=== PATIENT | female | born 1960 ===

== ENCOUNTER 2021-06-28 11:35 | Emergency (ER) | payer OTHER, SELFPAY ==
[2021-06-28 12:50] VITALS: BP 111/58; PULSE 55; RESP 16; TEMP 35.8; O2SAT 95; BMI 24.9
--- NOTE | 2021-06-28 13:52 | ED_ITS ---
HPI - General Adult General Chief complaint: General Medical Stated complaint: Hemorrhoids Time Seen by Provider: 06/28/21 13:52 Source: patient Mode of arrival: ambulatory Limitations: no limitations History of Present Illness HPI narrative: 61 y/o female presenting to the ER c/o hemorrhoid pain for the last 5-6 days. She denies any rectal bleeding, no rectal trauma or intercourse. She has a history of hemorrhoids requiring hemorrhoidectomy x2 at [facility]. She reports constipation and has not had a BM in 2 days and it was hard. She denies N/V or abdominal pain. She has not been using any topical treatments for her hemorrhoids. MD complaint: hemorrhoids Onset (ago): day(s) (6) Location: buttocks Radiation: non-radiation Severity: moderate Severity scale (1-10): 7 Quality: aching and sharp Pain Consistency: constant Relieving factors: none Exacerbating factors: movement Associated symptoms: denies other symptoms Treatments prior to arrival: none Related Data Previous Rx's Medication Instructions Recorded docusate sodium 100 mg capsule 100 mg PO BID #30 cap 06/28/21 (Colace) doxycycline monohydrate 100 mg 100 mg PO BID #20 cap 06/28/21 capsule hydrocortisone 1 %-pramoxine 1 % 1 appl [place] QID PRN #10 g 06/28/21 rectal foam (Proctofoam HC) sennosides 8.6 mg capsule (senna) 8.6 mg PO DAILY #14 cap 06/28/21 Allergies Allergy/AdvReac Type Severity Reaction Status Date / Time Unable to Assess Allergy Unverified 06/28/21 14:09 Review of Systems Review of Systems: Constitutional: No Fever, No Chills ENT/Mouth: No sore throat, No Rhinorrhea, No Swallowing Difficulty Cardiovascular: No Chest Pain, No SOB Gastrointestinal: No Nausea, No Vomiting, No Diarrhea, No abdominal Pain, No Hematochezia, No Melena, +Constipation Genitourinary: No Dysuria, No Urinary Frequency, No Hematuria Musculoskeletal: No joint pain, No Myalgias Skin: +Skin Lesions, No rash Neuro: No Weakness, No Numbness, No Dizziness, No Headache Psych: +Anxiety/Panic Heme/Lymph: No Bruising, No Lymphadenopathy PMFSH Social History Social History Advance Directives: No Advance Directives Information Provided: Yes Physical Exam ED Vital Signs: Vital Signs - 24 hr 04/13/22 12:50 Temperature 96.5 F L Pulse Rate 55 Respiratory Rate 16 Blood Pressure 111/58 L Pulse Oximetry 95 BMI result Body Mass Index 24.9 Appearance: Alert. Oriented X3. No acute distress. HEENT: normal inspection CVS: Normal heart rate and rhythm. Pulses normal. Respiratory: No respiratory distress. Skin: Skin warm and dry. Normal skin color. Normal skin turgor. No rashes. Rectal: external hemorrhoids x2, one enlarged and tender with erythema but no visible thombosis, adjacent is a small pustule with surrounding erythema, no internal hemhorroids on VIPUL, no rectal wall involvement or palpable abscess. Extremities: normal inspection, normal ROM x4 Neuro: Oriented X 3. No motor deficit. No sensory deficit. Course Course Course Narrative: 61 y/o female with history of hemorrhoids s/p hemorrhoidectomy x2 presents with hemorrhoid pain x1 week. Not using any topical treatments. +constipation. No bleeding. Exam is revealing for an external hemorrhoid, tender with small pustule w/ small area of erythema adjacent. no rectal involvement, no hx DM. No evidence of perirectal abscess. Will treat hemorrhoids with proctofoam and give empiric doxycycline (PCN allergy) for possible cellulitis. Patient will follow up with general surgery for further evaluation or come back to the ER if symptoms worsen. Critical Care Time Critical Care Time Critical Care Time: No Discharge Plan Discharge Clinical Impression: External hemorrhoid Patient Disposition: Home, Self-Care Instructions: Hemorrhoids (DC) Additional Instructions: Use the prescribed medication on the hemorrhoid to help shrink it and treat the pain. It is important to treat constipation and prevent it from getting worse - take the prescribed bowel medications. Increase your fiber and water intake Take a warm bath each day and soak the area Follow up with General surgery for further evaluation If you develop new or worsening symptoms call 911 or come back to the ER for further evaluation. Prescriptions: New Proctofoam HC 1-1 % foam 1 appl OH QID PRN (Reason: hemorrhoids) Qty: 10 0RF doxycycline monohydrate 100 mg capsule 100 mg PO BID Qty: 20 0RF docusate sodium [Colace] 100 mg capsule 100 mg PO BID Qty: 30 0RF senna 8.6 mg capsule 8.6 mg PO DAILY Qty: 14 0RF Referrals: Nilesh Dunham MD [Physician] - 1 week (hemorrhoids)
== END 2021-06-28 14:31 | disposition home or self-care (01) ==
PROVIDERS: Emergency Provider Emergency Medicine
DX: K64.4 Residual hemorrhoidal skin tags (principal); Z79.899 Other long term (current) drug therapy
CPT/HCPCS: 99283

== ENCOUNTER 2023-07-07 10:52 | Emergency (ER) | payer OTHER, SELFPAY ==
--- NOTE | ~2023-07-07 | XR_ITS ---
EXAMINATION: XR RIBS, RIGHT CLINICAL INFORMATION: Fall pain COMPARISON: No prior exam available. TECHNIQUE: Chest frontal, 4 oblique rib series. Total of 5 views. FINDINGS: RIBS: Skeletal structures are normal. LUNGS AND BRYANT: Both lungs are clear. PLEURA: Normal. Costophrenic angles are sharp, no pneumothorax. HEART: The heart is normal in size. MEDIASTINUM: The mediastinum is within normal limits.. XR/XR ribs RT min 3V w CXR1V IMPRESSION: 1. No radiographic evidence of rib fracture. 2. No radiographic evidence of acute cardiopulmonary disease.
[2023-07-07 10:54] VITALS: BP 145/70; PULSE 56; RESP 17; TEMP 36.6; O2SAT 99; BMI 24.3
--- NOTE | 2023-07-07 11:53 | ED_ITS ---
HPI - General Adult General Chief complaint: General Medical Stated complaint: Fall/R side pain Time Seen by Provider: 07/07/23 11:52 Source: patient, family, RN notes reviewed and old records reviewed Mode of arrival: ambulatory Limitations: no limitations History of Present Illness HPI narrative: 63 year old female with no significant pmhx here with right anterior rib pain s/p mechanical fall 3 days ago. Patient states that she was bending over while cleaning her bathtub when she lost her balance, causing her to fall and hit the right side of her chest on the side of the tub. denies head strike or LOC. not on anticoagulation. she reports pain along the base of her anterior ribs which has been constant since. she has been taking Tylenol at home without relief. last dose was yesterday. Denies chest pain, palpitations, cough, hemoptysis, shortness of breath, abd pain, nausea, vomiting, flank pain, bruising. Related Data Previous Rx's ?Medication ?Instructions ?Recorded docusate sodium 100 mg capsule 100 mg PO BID #30 caps 06/28/21 (Colace) doxycycline monohydrate 100 mg 100 mg PO BID #20 caps 06/28/21 capsule hydrocortisone 1 %-pramoxine 1 % 1 appl NC QID PRN hemorrhoids #10 06/28/21 rectal foam (Proctofoam HC) grams sennosides 8.6 mg capsule (senna) 8.6 mg PO DAILY #14 caps 06/28/21 cyclobenzaprine 5 mg tablet 5 mg PO BEDTIME PRN muscle spasm 07/07/23 #4 tabs lidocaine 5 % topical patch 1 patch topical DAILY #15 ea 07/07/23 (Lidoderm) oxycodone 5 mg tablet 5 mg PO Q8H PRN pain (scale score 07/07/23 7-10) #3 tabs Allergies Allergy/AdvReac Type Severity Reaction Status Date / Time atorvastatin [From Lipitor] Allergy Shortness Verified 07/07/23 10:58 of Breath Penicillins [PCN] Allergy Vomiting Verified 07/07/23 10:58 rosuvastatin [From Crestor] Allergy Shortness Verified 07/07/23 10:58 of Breath Review of Systems Review of Systems: Constitutional: No fever, chills, fatigue, night sweats, weight changes ENT/Mouth: No ear pain, hearing loss, nasal congestion, sinus pain, rhinorrhea, sore throat Eyes: No eye pain, swelling, redness, vision changes, discharge Cardio: No chest pain, palpitations, ALFRED, orthopnea, peripheral edema Pulm: No SOB, cough, sputum, wheezing, dyspnea, hemoptysis GI: No nausea, vomiting, hematemesis, abdominal pain, diarrhea, constipation, hematochezia, melena : No irregular bleeding, dysuria, frequency, urgency, hesitancy, hematuria, flank pain, urinary flow changes, urinary incontinence or retention MSK: No back pain, neck pain, joint pain, myalgias, +right rib pain Skin: No lesions, rashes Neuro: No weakness, numbness, paresthesias, LOC, dizziness, headache Psych: No anxiety/panic, depression, SI/HI, AH/VH All other systems reviewed and are negative. [facility] Past Medical History Attestation statement: The following information was validated with the patient. Source: old records reviewed and nursing notes reviewed Social History Social History Advance Directives: No Advance Directives Information Provided: No Physical Exam ED Vital Signs: Vital Signs - 24 hr 07/07/23 14:09 07/07/23 14:21 Temperature 98 F Pulse Rate 46 L 46 L Respiratory Rate 16 Blood Pressure 160/60 H 160/60 H Pulse Oximetry 98 98 Oxygen Delivery Method Room Air Room Air BMI result Body Mass Index 24.3 hypertensive, vitals otherwise wnl. not hypoxic. Const General: cooperative, healthy appearing, comfortable and no acute distress Orientation/consciousness: patient oriented x3 Limitations: no limitations [facility] Head: Yes normal to inspection, Yes No palpable skull fracture present, Yes normocephalic, Yes atraumatic, No Newman's sign, No raccoon eyes and No periorbital ecchymosis Eyes General: appearance normal, both eyes and all related structures Neck Neck: Yes normal visual inspection and Yes full ROM Chest Other: + no overlying skin changes or deformities. ttp over right anterolateral 8-10th ribs. no palpable deformity or tenderness. symmetric chest rise and fall. Chest palpation & inspection: normal inspection of the chest Resp Effort & Inspection: normal respiratory effort and able to speak in complete sentences Auscultation: clear to auscultation bilaterally Cardio Rate: regular rate Rhythm: regular rhythm GI Inspection: Yes normal to inspection and No abdominal wall ecchymosis Palpation (GI): Soft to palpation and nontender General: Yes no CVA tenderness Back/Spine/Pelvis Other: No midline spinous tenderness or step off deformity. No paraspinal muscle tenderness. Back: no CVA tenderness Skin General skin exam: no rashes or lesions noted Neuro General: patient oriented x3 Course Course Course Narrative: 1400-- xrays do not exhibit acute rib fracture. likely contusion. discussed results with patient who reports symptom improvement with tylenol and lidocaine patch. Patient has remained stable throughout ED visit today. Discussed worrisome signs and symptoms and when to return to the ED. All questions answered at this time. Patient is agreeable with disposition and stable for discharge. Medications Administered Discontinued Medications Generic Name Dose Route Start Last Admin Trade Name Freq PRN Reason Stop Dose Admin Ketorolac Tromethamine 30 mg 07/07/23 12:09 07/07/23 12:44 Ketorolac Tromethamine 30 Mg/Ml Vial IM 07/07/23 12:10 30 mg ONCE ONE Administration Lidocaine 1 patch 07/07/23 12:03 07/07/23 12:42 Lidocaine 4 % Patch Adh..Patch TRANSDERMA 07/07/23 12:04 1 patch ONCE ONE Administration Protocol Medical Decision Making Medical Decision Making [facility] Narrative: 63 year old female with no significant pmhx here with right anterior rib pain s/p mechanical fall 3 days ago. vital signs stable. she is nontoxic appearing and in nad. on exam, no overlying skin changes or deformities. ttp over right an terolateral 8-10th ribs. no palpable deformity or tenderness. symmetric chest rise and fall. lungs cta b/l. equal breath sounds. rrr. ambulating with steady gait. Differential diagnosis includes rib fracture, rib contusion. unlikely flail chest, hemothorax, pneumothorax. Plan for xrays, pain control, and re-evaluation. Differential Diagnosis Differential Diagnoses: The differential diagnosis associated with the presentation includes As above Admission/Observation Not indicated Independent Interpretation I performed an independent interpretation of an: Plain X-Ray Interpretation: Right rib x-ray does not exhibit fracture, agree with radiologist's interpretation. Radiology Impression Discussion of test interpretation with radiology: I have reviewed the radiologist's reading. Radiologist Impression: EXAMINATION: XR RIBS, RIGHT CLINICAL INFORMATION: Fall pain COMPARISON: No prior exam available. TECHNIQUE: Chest frontal, 4 oblique rib series. Total of 5 views. FINDINGS: RIBS: Skeletal structures are normal. LUNGS AND BRYANT: Both lungs are clear. PLEURA: Normal. Costophrenic angles are sharp, no pneumothorax. HEART: The heart is normal in size. MEDIASTINUM: The mediastinum is within normal limits.. XR/XR ribs RT min 3V w CXR1V IMPRESSION: 1. No radiographic evidence of rib fracture. 2. No radiographic evidence of acute cardiopulmonary disease. External Record Review External record reviewed: Inpatient record Prescription Management I considered prescription management with: Pain Medication Social Determinants Patient?s care significantly limited by Social Determinants of Health including: Other Social Determinant of Health Discharge Plan Discharge Clinical Impression: Contusion of rib on right side Patient Disposition: Home, Self-Care Instructions: Rib Contusion (ED) Additional Instructions: The x-ray of your ribs/chest does not demonstrate fracture. You likely have a contusion of your rib. Take Tylenol and ibuprofen at home for pain as needed. Morphine has been sent to your pharmacy for you to take for breakthrough pain. Be cautious when taking with Flexeril as this can lead to excessive drowsiness. In addition, lidocaine patches sent to pharmacy. Return with new or worsening symptoms. In the case of an emergency call 911. Prescriptions: New lidocaine [Lidoderm] 5 % adhesive patch,medicated 1 patch topical DAILY Qty: 15 0RF Rx Instructions: leave on most painful area for up to 12 hrs oxycodone 5 mg tablet 5 mg PO Q8H PRN (Reason: pain (scale score 7-10)) Qty: 3 0RF Rx Instructions: Partial Fill upon patient request. cyclobenzaprine 5 mg tablet 5 mg PO BEDTIME PRN (Reason: muscle spasm) Qty: 4 0RF No Action Proctofoam HC 1-1 % foam 1 appl NC QID PRN (Reason: hemorrhoids) Qty: 10 0RF doxycycline monohydrate 100 mg capsule 100 mg PO BID Qty: 20 0RF docusate sodium [Colace] 100 mg capsule 100 mg PO BID Qty: 30 0RF senna 8.6 mg capsule 8.6 mg PO DAILY Qty: 14 0RF Referrals: Physician,Unknown J [Primary Care Provider] - Interventions: ED Discharge Assessment Last Done: 07/07/23 14:21 Discharge Date/Time: 07/07/23 14:22 Print Language: Qatari
[2023-07-07] MEDS: Lidocaine 4 % Patch ADH..PATCH 1 PATCH TRANSDERMA (12:42)
[2023-07-07] MEDS: Ketorolac Tromethamine 30 MG/ML VIAL IM (12:44)
[2023-07-07 14:09] VITALS: BP 160/60; PULSE 46; O2SAT 98
[2023-07-07 14:21] VITALS: BP 160/60; PULSE 46; RESP 16; TEMP 36.6; O2SAT 98
== END 2023-07-07 14:22 | disposition home or self-care (01) ==
PROVIDERS: Emergency Provider Emergency Medicine
DX: S20.211A Contusion of right front wall of thorax, initial encounter (principal); R07.81 Pleurodynia; Y93.E9 Activity, other interior property and clothing maintenance; Y92.009 Unspecified place in unspecified non-institutional (private) residence as the place of occurrence of the external cause; Y99.8 Other external cause status; Z79.899 Other long term (current) drug therapy
CPT/HCPCS: 71101; 96372; 99283; 99284; J1885

== ENCOUNTER 2024-12-16 12:54 | Outpatient (AMB) | payer OTHER, SELFPAY ==
--- NOTE | 2024-12-16 13:08 | A.OFFVIS_ITS ---
Intake Visit Reasons: kidney stones Intake Note: patient presents today for: new pt kidney stones urology medications: none blood thinners: none Wrapper Cashier Required: No Accompanied by: Self / Same As Patient Allergies atorvastatin (From Lipitor) Allergy (Verified 12/16/24 14:00) Shortness of Breath Penicillins (PCN) Allergy (Verified 12/16/24 14:00) Vomiting rosuvastatin (From Crestor) Allergy (Verified 12/16/24 14:00) Shortness of Breath Medication List - Last Reconciled 12/16/24 by SARAHI Nance cyclobenzaprine 5 mg PO BEDTIME PRN docusate sodium (Colace) 100 mg PO BID doxycycline monohydrate 100 mg PO BID hydrocortisone-pramoxine 1-1 % (Proctofoam HC) [address] QID PRN lidocaine 5% (Lidoderm) 1 patch topical DAILY oxycodone 5 mg PO Q8H PRN sennosides (senna) 8.6 mg PO DAILY HPI Comments Details: Linda is a very pleasant 64-year-old female patient. She today as a new patient for nephrolithiasis. In discussion with the patient today she reports having seeked emergency room care at [facility] once in September and again in October for ongoing bilateral flank pain she has been experiencing she reports a CT was ordered and performed and recommendations were made for urology referral for further assessment evaluation. CT of the abdomen abdomen and pelvis without contrast report was obtained and reviewed with the patient today. Kidneys and ureters with no hydronephrosis or contrast evidence of suspicious masses. 3 mm nonobstructing right upper pole renal stone. The bladder is normal. She discusses her longstanding history of nephrolithiasis requiring ESWL in the past. She reports having followed up with Urology through [facility] as well as [facility] however is and wants to establish urological care here at [facility]. She does continue to experience right-sided flank pain. We did discussed at length potential causes of nephrolithiasis as well as further treatment options and risks and benefits of these treatment options. She otherwise denies any bothersome urinary issues. She denies urinary urgency, urinary frequency, incontinence, nocturia, hematuria, dysuria, foul smelling urine, changes to urinary stream, fever, and or chills. She is happy with her current voiding parameters. When asked she does report only drinking about 16 oz of water a day. We did discussed the importance of adequate hydration relation to nephrolithiasis as well as overall health and well-being. All questions were answered. She otherwise offers no other issues or concerns at this time. Review of Systems Const All systems reviewed & are unremarkable except as noted in HPI and below Physical Exam Const General: cooperative, healthy appearing, comfortable, no acute distress, well developed, alert and awake Orientation/consciousness: patient oriented x3 Limitations: no limitations HEENT Head: Yes normal to inspection, Yes normocephalic and Yes atraumatic Ears: hearing grossly normal bilaterally Eyes General: appearance normal, both eyes and all related structures Neck Neck: Yes normal visual inspection and Yes trachea midline Chest Chest palpation & inspection: normal inspection of the chest Resp Effort & Inspection: normal respiratory effort and able to speak in complete sentences Cardio Rate: regular rate GI Inspection: Yes normal to inspection General: Yes no CVA tenderness Back/Spine/Pelvis Back: no CVA tenderness Skin General skin exam: no rashes or lesions noted Neuro General: patient oriented x3 Extrem General: Yes normal to inspection Psych Appearance: grossly normal and well kempt Mental Status: mental status grossly normal Speech and movement: Normal speech and movement present and Clear speech present Affect: normal affect Attitude: cooperative Thought process: Normal thought process present Thought content: Normal thought content present Insight: Fair insight present (Psych) Judgement: Fair judgement present (Psych) Results AMB Urinalysis, Automated UA Leukoctes 0 Britton/uL Last Edit by SHEILA Henderson on 12/16/24 13:24 UA Nitrite Negative Last Edit by SHEILA Henderson on 12/16/24 13:24 UA Urobilinogen 0.2 mg/dL Last Edit by SHEILA Henderson on 12/16/24 13:2 4 UA Protein 15 mg/dL Last Edit by SHEILA Henderson on 12/16/24 13:24 UA pH 6.0 Last Edit by SHEILA Henderson on 12/16/24 13:24 UA Blood 80 [place]/uL Last Edit by SHEILA Henderson on 12/16/24 13:24 UA Specific [place] 1.025 Last Edit by SHEILA Henderson on 12/16/24 13: 24 UA Ketone Last Edit by SHEILA Henderson on 12/16/24 13:24 UA Bilirubin 1 mg/dL Last Edit by SHEILA Henderson on 12/16/24 13:24 UA Glucose 0 mg/dL Last Edit by SHEILA Henderson on 12/16/24 13:24 Results Reviewed Results Reviewed: Laboratory Last Values Urine pH (Auto) 6.0 12/16/24 13:23 Specific [place] (Auto) 1.025 12/16/24 13:23 Urine Protein (Auto) 15 mg/dL 12/16/24 13:23 Glucose (UA)(Auto) 0 mg/dL 12/16/24 13:23 Urine Blood (Auto) 80 [place]/uL 12/16/24 13:23 Urine Nitrite (Auto) Negative 12/16/24 13:23 Urine Bilirubin (Auto) 1 mg/dL 12/16/24 13:23 Urine Urobilinogen (Auto) 0.2 mg/dL 12/16/24 13:23 Leukocyte Esterase (Auto) 0 [place]/uL 12/16/24 13:23 Assessment & Plan Assessment & Plan (1) Microscopic hematuria: Code(s): R31.29 - Other microscopic hematuria Category: Medical (2) Calculus of kidney: Code(s): N20.0 - Calculus of kidney Plan In office urinalysis results reviewed with the patient today; as noted above; will send for urine cytology. Recent CT results reviewed with the patient today; as noted above. We did discussed at length potential causes of nephrolithiasis as well as further interventions and risks and benefits of these interventions. We discussed obtaining [facility] for further assessment evaluation. We discussed adding 1 oz of lemon juice to water daily. We discussed the importance of adequate hydration relation to nephrolithiasis as well as overall health and well-being. She currently denies any bothersome urinary issues. She reports be happy with current voiding parameters. Follow-up in 3 months with [facility] to be completed prior; or sooner with any issues, concerns, and or questions. Orders: Orders AMB Urinalysis Automated Today Z13.9 - Encounter for screening, unspecified Urine Cytology Today N20.0 - Calculus of kidney, R31.29 - Other microscopic hematuria Patient Instructions: The patient had an opportunity to ask questions regarding the treatment plan. All questions were answered. Physical exam, labs, and imaging were discussed and reviewed in detail. As well as risks, benefits, and discussion of treatment choices. No major barriers to understanding were identified. The patient expressed understanding and agreement with the above treatment plan. The patient was made aware they should contact our office by phone for worsening of their current condition, the appearance of new symptoms, or with any questions or concerns. Compliance is encouraged with any medications and follow up testing that is ordered. It is a privilege to be allowed the opportunity to participate in? your urological care.? Again, if you have any questions or concerns If you have any questions or concerns please do not hesitate to contact me. The office is [phone]. This note is constructed using voice recognition software. While every effort has been made to ensure accuracy operations supervisor errors may have been included. Yours sincerely, SARAHI Nance Coding Level of Care Code New Pt Level 3 (70611) Diagnoses Microscopic hematuria R31.29 Calculus of kidney N20.0
--- OUTSIDE RECORDS SUMMARY | 2024-12-16 14:09 | XMS_ITS | Clinical Summary ---
Author Organization [facility] Address [address] [facility] [address] [place] [address] Phone Care Team Providers Care Portable Power Tool Repairer Name Role Phone Suraj Pierre PA-C Primary Care Provider [phone] Allergies Active Allergy Reactions Criticality Noted Date Comments Penicillins Nausea And Vomiting,Vomiting Low 09/25/2012 Other Reaction(s): NAUSEA Rosuvastatin Shortness of breath High 10/08/2024 Other Reaction(s): ACHY,CHEST TIGHTNESS Difficulty breathing Medications traZODone (DESYREL) 100 MG tablet Take 100 mg by mouth 5 Active tamsulosin (FLOMAX) 0.4 MG 24 hr capsule Take by mouth 1 (one) time each day Active pravastatin (PRAVACHOL) 80 MG tablet Take 80 mg by mouth 1 (one) time each day 5 Active polyethylene glycol (GLYCOLAX) 17 GM/SCOOP powder MIX 17 GRAMS IN LIQUID ONCE A DAY NEEDED FOR CONSTIPATION 1 Active naproxen (NAPROSYN) 375 MG tablet Take 375 mg by mouth 6 Active loratadine (CLARITIN) 10 MG tablet Take 10 mg by mouth 3 Active fluticasone HFA (FLOVENT HFA) 110 MCG/ACT inhaler INHALE 1 PUFF INTO THE LUNGS TWICE A DAY. 5 Active famotidine (PEPCID) 40 MG tablet Take 40 mg by mouth 5 Active ezetimibe (ZETIA) 10 MG tablet Take 10 mg by mouth 1 (one) time each day 5 Active Cholecalciferol (Vitamin D3) 25 MCG (1000 UT) capsule Take 1,000 Units by mouth 5 Active cyclobenzaprine (FLEXERIL) 10 MG tablet Take 10 mg by mouth 4 Active albuterol HFA (PROVENTIL HFA;VENTOLIN HFA) 108 (90 Base) MCG/ACT inhaler INHALE 2 PUFFS INTO THE LUNGS EVERY 4 TO 6 HOURS NEEDED FOR SHORTNESS OF BREATH OR WHEEZING Active acetaminophen (TYLENOL) 500 MG tablet 500 mg if needed 5 Active Active Problems Problem Noted Date Diagnosed Date Hypertension 10/14/2024 Iron deficiency anemia secon maxwell to inadequate dietary iron intake 06/27/2020 History of calculus of kidney 03/03/2020 Vitamin D deficiency 05/06/2018 Prediabetes 04/21/2018 Overview (10/08/2024): 04/21/18: A1C 5.8 Encounters Date Type Department Care Team Description 11/26/2024 Telephone [facility] [address] [address] Nathan Chavis MD 11/25/2024 11:15 AM EDT Office Visit [facility] [address] [address] Nathan Chavis MD History of calculus of kidney (Primary Dx) 10/08/2024 1:30 PM EDT Office Visit [facility] [address] [address] Nathan Chavis MD History of calculus of kidney (Primary Dx) from Last 3 Months Immunizations Immunization Administration Dates Next Due Influenza (IM) Preservative Free 12/02/2014 Influenza, MDCK, PF, Quadrivalent 11/19/2019 Influenza, Quadrivalent, Preservative Free 11/05,01/11/2016 Pfizer SARS-COV-2 07/04/2021,04/24/2020,04/03/19 21 Pneumococcal Conjugate 13-Valent 11/19/2019,11/16 Pneumococcal Polysaccharide 11/28/2018, 5 Shingrix 10/28/2018,09/11/2017 Tdap 07/19/2021,01/29/2011 Family History Medical History Relation Comments Cancer Mother Relation Status Comments Father Mother Social History Tobacco Use Types Packs/Day Years Used Date Smoking Tobacco: Former Cigarettes Smokeless Tobacco: Former Tobacco Cessation:Counseling Given: Not Answered Alcohol Use Standard Drinks/Week Comments Never 0 (1 standard drink = 0.6 oz pur e alcohol) Comments Unknown Sex and Gender Information Value Date Recorded Sex Assigned at Not on file Legal Sex Female 4:14 PM EDT Gender Identity Not on file Sexual Orientation Not on file Last Filed Vital Signs Vital Sign Reading Time Taken Comments Blood Pressure 109/58 11/25/2024 11:26 AM EDT Pulse 61 11/25/2024 11:26 AM EDT Temperature - - Respiratory Rate - - Oxygen Saturation 98% 11/25/2024 11:26 AM EDT Inhaled Oxygen Concentration - - Weight 50 kg (110 lb 3.2 oz) 11/25/2024 11:26 AM EDT Height - - Body Mass Index - - Plan of Treatment Upcoming Encounters Date Type Department Care Team (Late st Contact Info) Description 01/06/2025 1:30 PM EDT Office Visit [facility] [address] [phone] Donna Nguyen ARNP [address] [address] Health Maintenance Due Date Last Done Comments Breast Cancer Screening 1960 Colorectal Cancer Screening: Annual FOBT 2007 Colorectal Cancer Screening: Colonoscopy 2007 Colorectal Cancer Screening: Sigmoidoscopy 2007 Influenza Vaccine (#1) 2024 0, 11/05/2017, 01/11/2016, Additional history exists Pneumococcal Vaccine: 50+ Years (4 of 4 - PCV20 or PCV21) 11/18/2024 11/19/2019, 11/28/2018, 12/02/2014, Additional history exists Hepatitis B Vaccine Aged Out No longe r eligible based on patient's age to complete this topic Procedures Procedure Name Priority Date/Time Associated Diagnosis Comments ALT EXT LABS Routine 10/29/2024 from Last 3 Months Results * (ABNORMAL) ALT EXT LABS (10/29/2024) WBC 11.6(A) 3.3 - 10.0 10*3/ML Red Blood Cell Count 3.57 Hemoglobin 11.2(A) 12.0 - 16.0 Hematocrit 34.3(A) 36.0 - 46.0 Platelets 370 150 - 399 10*3/UL MCV 96.1 82.0 - 108.0 BUN 11 4 - 21 mg/dL Creatinine 0.72 0.50 - 1.10 mg/dL Calcium 9.4 8.7 - 10.7 mg/dL Sodium 142 137 - 147 Potassium 3.6 3.4 - 5.5 Chloride 107.0 99.0 - 108.0 Bicarbonate (CO2) 27 22 - 30 mmol/L eGFR Non-Afr Barbadian 92 Spec Grav, UA 1.013 pH, UA 7.5 10/29/2024 us Historical Provider LAB BLOOD ORDERABLES Lisa l Result from Last 3 Months Insurance [facility] ([id number]) [place] [phone] Care Teams Portable Power Tool Repairer Relationship Specialty Start Date End Date Suraj Pierre PA-C [address] [address] [facility] - General 09/03/24
--- OUTSIDE RECORDS SUMMARY | 2024-12-16 14:09 | XMS_ITS | Clinical Summary ---
Author Organization [address] [facility] Address [address] [place] [address] Phone Care Team Providers Care Supervisor Tank Storage Name Role Phone Suraj Tse Primary Care Provider [phone] Allergies Active Allergy Reactions Criticality Noted Date Comments Atorvastatin Shortness of breath High 09/04/2024 Difficulty breathing Nsaids (Non-Steroidal Anti-Inflammatory Drug) Other 03/03/2020 Bloody urine; hx of kidney stones Penicillins Nausea And Vomiting Low 09/25/2012 Rosuvastatin Shortness of breath High 09/04/2024 Difficulty breathing Medications ezetimibe (ZETIA) 10 mg tablet Take 1 tablet (10 mg total) by mouth daily. 5 Active albuterol HFA (PROAIR HFA ; PROVENTIL HFA ; VENTOLIN HFA) 90 mcg/actuation inhaler Inhale 2 puffs by mouth every 6 (six) hours if needed for shortness of breath. 5 Active famotidine (PEPCID) 40 mg tablet Take 1 tablet (40 mg total) by mouth 2 times daily. 5 Active acetaminophen (TYLENOL) 500 mg tablet 1 tablet (500 mg total). 5 Active tamsulosin (FLOMAX) 0.4 mg 24 hr capsule Take 1 capsule (0.4 mg total) by mouth daily. 5 Active calcium carbonate 1,500 mg (600 mg elemental calcium) tablet Take 600 mg by mouth daily. 5 Active cholecalciferol (VITAMIN D-3) 25 mcg (1,000 unit) capsule Take 1 capsule (1,000 Units total) by mouth daily. 5 Active traZODone (DESYREL) 100 mg tablet Take 1 tablet (100 mg total) by mouth at bedtime. 5 Active diclofenac (VOLTAREN) 1 % topical gel APPLY 2 GM TOPICALLY TO AFFECTED AREA TWICE PER DAY NEEDED FOR PAIN RELIEF 4 Active cyclobenzaprine (FLEXERIL) 10 mg tablet Take 1 tablet (10 mg total) by mouth every 8 hours. 4 Active fluticasone HFA (FLOVENT HFA) 110 mcg/actuation inhaler INHALE 1 PUFF INTO THE LUNGS TWICE A DAY. 5 Active loratadine (CLARITIN) 10 mg tablet Take 1 tablet (10 mg total) by mouth once daily as needed. 3 Active nicotine (NICODERM CQ) 7 mg/[address] 1 patch on the skin. 2 Active pravastatin (PRAVACHOL) 80 mg tablet Take 1 tablet (80 mg total) by mouth daily. 5 Active hydrocortisone- pramoxine (Proctofoam HC) rectal foam APPLY TO AFFECTED AREA 4 TIMES A DAY NEEDED FOR HEMORRHOIDS Authorized by: BAIRON WATTS 2 Active senna 8.6 mg tablet Take 1 tablet (8.6 mg total) by mouth daily. 2 Active polyethylene glycol (Gavilax) 17 gram/dose oral powder MIX 17 GRAMS IN LIQUID ONCE A DAY NEEDED FOR CONSTIPATION 1 Active Social History Tobacco Use Types Packs/Day Years Used Date Smoking Tobacco: Never Assessed Comments Unknown Sex and Gender Information Value Date Recorded Sex Assigned at Not on file Legal Sex Female 2:54 PM EST Gender Identity Not on file Sexual Orientation Not on file Plan of Treatment Health Maintenance Due Date Last Done Comments Colorectal Cancer Screening: Colonoscopy 1960 Hepatitis A Vaccines (1 of 2 - Risk 2-dose series) 1977 RSV Immunization Adult Patients (1 - Risk 60-74 years 1-dose series) 2018 Social Influencers of Health Screening 02/14/2022 Falls Risk Assessment 2023 Depression Screening 03/18/2024 COVID-19 Vaccine ( season) 2024 07/04/2021, 04/24/2020, 04/03/2020 Influenza Vaccine (#1) 2024 0, 11/05/2017, 11/22/2016, Additional history exists Breast Cancer Screening 07/30/2025 07/31/19 24, 05/23/2022, 03/20/2021 Cholesterol Screening (Lipid Panel) 07/24/2029 07/24/2024, 07/24/2024, 07/11/2021, Additional history exists DTaP,Tdap,and Td Vaccines (3 - Td or Tdap) 07/20/2031 07/19/2021, 01/29/2011 Osteoporosis Screening (Bone Density Screening) 07/30/2033 07/31/2023, 07/31/2023 Hepatitis C Screening Completed 04/21/2018, 019 Zoster Vaccines Completed 10/28/2018, 09/11/2017 Pneumococcal Vaccine: 50+ Years Completed 07/12/2021, 11/19/2019, 11/28/2018, Additional history exists HIB Vaccines Aged Out No longer eligi ble based on patient's age to complete this topic HPV Vaccines Aged Out No longer eligi ble based on patient's age to complete this topic Hepatitis B Vaccines Aged Out No long er eligible based on patient's age to complete this topic IPV Vaccines Aged Out No longer eligi ble based on patient's age to complete this topic MMR Vaccines Aged Out No longer eligi ble based on patient's age to complete this topic Meningococcal ACWY Vaccine Aged Out N o longer eligible based on patient's age to complete this topic Meningococcal B Vaccine Aged Out No l onger eligible based on patient's age to complete this topic RSV Immunization Patients Under 20 months Aged Out No longer eligible based on patient's age to complete this topic Varicella Vaccines Aged Out No longer eligible based on patient's age to complete this topic Procedures Procedure Name Priority Date/Time Associated Diagnosis Comments MICHELE SCREENING DIGITAL Routine 07/31/2023 4:31 PM EDT Encounter for screening mammogram for malignant neoplasm of breast [facility] DEXA AXIAL SKELETON Routine 07/31/2023 11:17 AM EDT Other specified disorders of bone density and structure, other site from Last 3 Months or Most Recently Relevant to Health Maintenance Results * [facility] SCREENING DIGITAL (07/31/2023 4:31 PM EDT) Anatomical Region Laterality Modality Mammography 07/31/2023 9:04 AM EDT Narrative 07/31/2023 4:31 PM EDT [facility] Diagnostic Imaging Department [address] [place] [address] Patient: LINDA MCNAIR./Age/Sex: 1960 - 63 - F Unit#: [id number] Location/Status: [facility] CLI Mnemonic/Ordering Site: [facility] Ordering Physician: SURAJ TSE [facility] Screening Digital - 07/31/23 - 17 Report Status:Signed EXAM: [facility] Screening Digital EXAM DATE AND TIME: 07/31/2023 9:17 AM HISTORY: Screening. Mother had breast carcinoma in her 60's. COMPARISON: 05/23/22, 03/20/21, 01/26/20 TECHNIQUE: Bilateral digital breast tomosynthesis was performed in the CC and MLO projections. Computer aided detection with Jack Robie 3D 3.1 was employed. TISSUE DENSITY: b. There are scattered areas of fibroglandular density. FINDINGS: No suspicious masses, grouped microcalcifications, or areas of architectural distortion are seen. Vascular calcification is present. The skin is unremarkable. IMPRESSION: Stable mammographic appearance of the breasts. No evidence of malignancy is seen. A negative mammogram in the presence of a clinically suspicious palpable abnormality does not preclude the possibility of malignancy or alter the indications for biopsy. BI-RADS: Category 2: Benign RECOMMENDATION(S): 1: Routine screening mammogram BILATERAL in 1 year. Dictating Physician: JOSELYN JARRELL MD Electronically Signed by: JOSELYN JARRELL MD Dic Date/Time: 07/31/23 1630 Sign date/Time: 07/31/23 1631 Procedure Note Joselyn Jarrell MD - 11/04/2023 [facility] Diagnostic Imaging Department [address] [place] [address] Patient: JAXONSALASLINDA D.O.B./Age/Sex: 1960 - 63 - F Unit#: [id number] [facility] Ordering Physician: SURAJ TSE [facility] Screening Digital - 07/31/23 - 916 Report Status:Signed EXAM: [facility] Screening Digital EXAM DATE AND TIME: 07/31/2023 9:17 AM HISTORY: Screening. Mother had breast carcinoma in her 60's. COMPARISON: 05/23/22, 03/20/21, 01/26/20 TECHNIQUE: Bilateral digital breast tomosynthesis was performed in the CCand MLO projections. Computer aided detection with Jack Robie 3D 3.1was employed. TISSUE DENSITY: b. There are scattered areas of fibroglandular density. FINDINGS: No suspicious masses, grouped microcalcifications, or areas ofarchitectural distortion are seen. Vascular calcification is present. The skin is unremarkable. IMPRESSION: Stable mammographic appearance of the breasts. No evidence of malignancyis seen. A negative mammogram in the presence of a clinically suspicious palpable abnormality does not preclude the possibility of malignancy or alter the indications for biopsy. BI-RADS: Category 2: Benign RECOMMENDATION(S): 1: Routine screening mammogram BILATERAL in 1 year. Dictating Physician: JOSELYN JARRELL MD Electronically Signed by: JOSELYN JARRELL MD Dic Date/Time: 07/31/23 1630 Sign date/Time: 07/31/23 1631 Suraj COTTON IMG BI PROCEDURES Final Result * [facility] DEXA AXIAL SKELETON (07/31/2023 11:17 AM EDT) Anatomical Region Laterality Modality Mammography 07/31/2023 9:04 AM EDT Narrative 07/31/2023 11:17 AM EDT [facility] Diagnostic Imaging Department [address] [place] [address] Patient: LINDA MCNAIR./Age/Sex: 1960 - 63 - F Unit#: [id number] Location/Status: [facility] CLI [facility] Ordering Physician: SURAJ TSE [facility] Dexa Axial Skeleton - 07/31/23 - 0945 Report Status:Signed HISTORY: The patient is a 63-year-old postmenopausal female with clinical concern for metabolic bone disease. FINDINGS: Dual energy x-ray absorptiometry of the lumbar spine and femurs is performed. The mean bone mineral density at L1-L4 (with the exclusion of L3) is 0.908 gm/cm2 which is 78% of that of young normals and 99% of that of age matched controls. This yields a T-score of -2.2 and a Z-score of -0.1 which is diagnostic of osteopenia. The mean bone mineral density of the femurs bilaterally is 0.770 gm/cm2 which is 76% of that of young normals and 95% of that of age matched controls. This yields a T-score of -1.9 and a Z-score of -0.3 which is diagnostic of osteopenia. IMPRESSION: 1. Osteopenia. There has been an increase of 3.7% in bone mineral density in the lumbar spine since the prior examination of 12/11/2012. There has been a decrease of 7.6% in bone mineral density in the right femur and a decrease of 8.9% in bone mineral density in the left femur. 2. FRAX analysis yields a 10-year probability of major osteoporotic fracture of 15.9% and a 10-year probability of hip fracture of 2.8%. Code 99352 Dictating Physician: WALKER MONGE MD Electronically Signed by: WALKER MONGE MD Dic Date/Time: 07/31/23 1115 Sign date/Time: 07/31/23 1117 Procedure Note Walker Monge MD - 11/04/2023 [facility] Diagnostic Imaging Department [address] [place] [address] Patient: LINDA MCNAIR /Age/Sex: 1960 - 63 - F Unit#: [id number] Location/Status: [facility] Ordering Physician: SURAJ TSE [facility] Dexa Axial Skeleton - 07/31/[address]44 Report Status:Signed HISTORY: The patient is a 63-year-old postmenopausal female withclinical concern for metabolic bone disease. FINDINGS: Dual energy x-ray absorptiometry of the lumbar spine and femursis performed. The mean bone mineral density at L1-L4 (with the exclusion ofL3) is 0.908 gm/cm2 which is 78% of that of young normals and 99% of that ofage matched controls. This yields a T-score of -2.2 and a Z-score of -0.1which is diagnostic of osteopenia. The mean bone mineral density of the femurs bilaterally is 0.770 gm/hq5wqbjk is 76% of that of young normals and 95% of that of age matched controls.This yields a T-score of -1.9 and a Z-score of -0.3 which is diagnostic of osteopenia. IMPRESSION: 1. Osteopenia. There has been an increase of 3.7% in bone mineral densityin the lumbar spine since the prior examination of 12/11/2012. There has laura decrease of 7.6% in bone mineral density in the right femur and a decreaseof 8.9% in bone mineral density in the left femur. 2. FRAX analysis yields a 10-year probability of major osteoporoticfracture of 15.9% and a 10-year probability of hip fracture of 2.8%. Code 10274 Dictating Physician: WALKER MONGE MD Electronically Signed by: WALKER MONGE MD Dic Date/Time: 07/31/23 1113 Sign date/Time: 07/31/23 1117 Suraj COTTON IMG BI PROCEDURES Final Result from Last 3 Months or Most Recently Relevant to Health Maintenance Insurance [facility] Member Subscriber Plan / Payer (Ef fective 2023-Present) Name:Linda Mcnair Relation to Subscriber:Self Name:Linda Mcnair Payer ID:[id number] Group ID:[id number] Type:Not on file Address: [place] [address] [place] [id number] Care Teams Supervisor Tank Storage Relationship Specialty Start Date End Date Suraj Tse PA [address] [place] [address] PCP - General 07/10/23
== END 2024-12-16 14:10 | disposition home or self-care (01) ==
LOC: HO.HUSH 12:54
PROVIDERS: Visit Provider Nurse Practitioner Family
DX: R31.29 Other microscopic hematuria (principal); N20.0 Calculus of kidney; Z13.9 Encounter for screening, unspecified
CPT/HCPCS: 99203

== ENCOUNTER 2024-12-16 12:54 | Outpatient (REF) | payer OTHER, SELFPAY ==
--- OUTSIDE RECORDS SUMMARY | 2024-12-16 15:18 | XMS_ITS | Clinical Summary ---
Author Organization [facility] Address [address] [place] [address] Care Team Providers Care Double Needle Operator Name Role Phone Suraj Pierre PA-C Primary Care Provider Source Comments PLEASE NOTE, if this patient is a minor, it may be UNLAWFUL to discuss sensitive information that is contained in these records (such as FAMILY PLANNING, MENTAL HEALTH or SUBSTANCE ABUSE) with the minor patient's parent or other person without the patient's specific authorization.[facility] Allergies Active Allergy Reactions Criticality Noted Date Comments Atorvastatin SOB High Difficulty breathing Nsaids (Non-Steroidal Anti-Inflammatory Drug) Other (See Comments) 03/03/2020 Bloody urine; hx of kidney stones Penicillins Nausea and Vomiting Low 09/25/2012 Rosuvastatin SOB High Difficulty breathing Medications GAVILAX 17 gram/dose powderIndication s:Constipation, unspecified constipation type MIX 17 GRAMS IN LIQUID ONCE A DAY NEEDED FOR CONSTIPATION 510 g 2 1 Active SENNA 8.6 mg tablet Take 1 Tablet by mouth once daily TAKE 1 TABLET BY MOUTH EVERY DAY Authorized by: BAIRON WATTS 2 Active PROCTOFOAM HC 1-1 % rectal foam APPLY TO AFFECTED AREA 4 TIMES A DAY NEEDED FOR HEMORRHOIDS Authorized by: BAIRON WATTS 2 Active nicotine (NICODERM CQ) 7 mg/24 hr patchIndications :Encounter for smoking cessation counseling Place 1 Patch onto the skin once daily (every 24 hours) 28 Patch 3 2 Active loratadine (CLARITIN) 10 mg tabletIndication s:Seasonal allergies TAKE 1 TABLET BY MOUTH ONCE DAILY NEEDED FOR ALLERGIES 30 Tablet 17 3 Active diclofenac sodium (VOLTAREN) 1 % gelIndications:C hronic midline low back pain with left-sided sciatica APPLY 2 GM TOPICALLY TO AFFECTED AREA TWICE PER DAY NEEDED FOR PAIN RELIEF 100 g 5 4 Active calcium carbonate 600 mg calcium (1,500 mg) tabletIndication s:Osteopenia of both thighs Take 1 Tablet by mouth once daily 90 Tablet 1 5 Active acetaminophen (TYLENOL) 500 mg tabletIndication s:Chronic midline low back pain with left-sided sciatica TAKE 1 TABLET BY MOUTH EVERY 8 HOURS NEEDED FOR PAIN MAXIMUM 6 TABS DAILY 90 Tablet 2 5 Active famotidine (PEPCID) 40 mg tabletIndication s:Gastroesophage al reflux disease, unspecified whether esophagitis present TAKE 1 TABLET BY MOUTH TWICE A DAY 180 Tablet 5 Active ezetimibe (ZETIA) 10 mg tabletIndication s:Hypercholester olemia Take 1 Tablet by mouth once daily. 90 Tablet 1 5 Active pravastatin (PRAVACHOL) 80 mg tabletIndication s:Hypercholester olemia Take 1 Tablet by mouth once daily. 90 Tablet 1 5 Active albuterol HFA 90 mcg/actuation inhalerIndicatio ns:Mild intermittent asthma without complication Inhale 2 Puffs into the lungs every 4 to 6 (four to six) hours as needed for shortness of breath or wheezing. 8.5 Each 4 5 Active fluticasone (FLOVENT HFA) 110 mcg/actuation inhalerIndicatio ns:Mild intermittent asthma without complication INHALE 1 PUFF INTO THE LUNGS TWICE A DAY. 12 g 5 5 Active tamsulosin (FLOMAX) 0.4 mg 24 hr capsuleIndicatio ns:Nephrolithias is Take 1 Capsule by mouth once daily. 30 Capsule 5 Active lisinopriL 5 mg tablet Take 1 Tablet by mouth once daily. 90 Tablet 1 5 Active traZODone (DESYREL) 100 mg tabletIndication s:Primary insomnia TAKE 1 TABLET BY MOUTH EVERYDAY AT BEDTIME 90 Tablet 1 5 Active VITAMIN D3 25 mcg (1,000 unit) capsuleIndicatio ns:Vitamin D deficiency TAKE 1 CAPSULE BY MOUTH EVERY DAY 90 Capsule 1 5 Active blood pressure monitorIndicatio ns:Hypertension, unspecified type Dispense one automated BP monitor, to be used daily and prn, length of need 99 years. 1 Kit 1 5 Active cyclobenzaprine (FLEXERIL) 10 mg tabletIndication s:Bilateral low back pain, unspecified chronicity, unspecified whether sciatica present Take 1 Tablet by mouth every 8 (eight) hours NEEDED FOR MUSCLE SPASMS!. 30 Tablet 2 5 Active Active Problems Problem Noted Date Diagnosed Date Hypertension 10/14/2024 Osteopenia of both thighs 08/16/2023 Overview (08/16/2023): DEXA 2023 Substance abuse, daily use 07/11/2021 Nicotine dependence with current use 07/11/2021 Alcohol abuse 07/11/2021 Iron deficiency anemia secon maxwell to inadequate dietary iron intake 06/27/2020 History of kidney stones 03/03/2020 Intermittent palpitations 01/14/2020 Herpes simplex infection of genitourinary system 09/03/2019 Oral herpes 09/03/2019 Chronic nonintractable headache 08/31/2019 Vitamin D deficiency 05/06/2018 Macrocytic anemia 04/22/2018 Cigarette nicotine dependence without complicati on 04/21/2018 BMI 27.0-27.9,adult 04/21/2018 Prediabetes 04/21/2018 Overview (04/21/2018): 04/21/18: A1C 5.8 Right low back pain 10/19/2014 Chronic midline low back pain with left-sided sc iatica 02/20/2013 Overview (03/24/2015): Referral to a Back Specialist Hypercholesterolemia 12/23/2012 GERD (gastroesophageal reflux disease) 3 Depression 10/24/2012 Overview (10/24/2012): Pt sees pyschiatrist Hx of hysterectomy, total 03/18/1984 Overview (06/14/2020): Due to cysts/fibroids Age related osteoporosis Overview (09/25/2012): S/P DEXA 12/06/10 Mammogram abnormal Overview (09/25/2012): FIBROGLANDULAR TS 25% B BREASTS, MAMMO 12/06/10 Asthma Resolved Problems Problem Noted Date Diagnosed Date Resolved Date Smoker 08/07/2018 05/20/2019 No-show for appointment 09/03/201606/2019 Overview (09/03/2016): Missed colonoscopy appt 08/23/16 Cellulitis 10/19/2014 05/20/2019 Localized bacterial skin infection 12/23/2012 05/20/2019 Encounters Date Type Department Care Team Description 10/27/2024 1:00 PM EDT Telemedicine Visit [address] [phone] Danny Guerra PA-C 10/14/2024 3:40 PM EDT Office Visit [address] [phone] Italo Alberto NP 10/07/2024 Results Follow-Up [address] [phone] Suraj Pierre PA-C from Last 3 Months Immunizations Immunization Administration Dates Next Due Flu, Cell Culture based, Pre servative Free, 6m+, Flucelvax 11/19/2019 Flu, Preservative Free 11/05/2017,01/11/2016 INFLUENZA, SEASONAL, INJECTABLE 11/23/19 17,11/27/2010,11/25/2009,11/30 INFLUENZA, SEASONAL, INJECTA BLE, PRESERVATIVE FREE 12/02/2014 PFIZER COVID VACCINE, PURPLE CAP, 12+ ,04/24/2020,04/24/2020,04/03,04/03/2020 PNEUMOCOCCAL CONJUGATE PCV 13 11/19/2019, 020,12/04/2010 PNEUMOCOCCAL CONJUGATE PCV 2 0 (Prevnar 20) 07/12/2021 PNEUMOCOCCAL POLYSACCHARIDE PPV23 (Pneumovax 23) 11/28/2018,12/02/2014,12/02/2014 TDAP 07/19/2021,01/29/2011 ZOSTER VACCINE, RECOMBINANT (SHINGRIX) 9,09/11/2017,09/11/2017 Zoster, Live Vaccine (Zostavax) 09/11/2017 Family History Medical History Relation Name Comments Cancer Brother 1 liver CA (42yrs ) Other (See Comments) Brother 2 hep C a nd HIV No Known Problems Brother 3 No Known Problems Brother 4 No Known Problems Daughter Diabetes Father No Known Problems Maternal Grandfather Hypertension Maternal Grandmother Cancer Mother breast CA (75 y rs) Hypertension Mother No Known Problems Paternal Grandfather Diabetes Sister 1 Depression Sister 2 No Known Problems Sister 3 No Known Problems Sister 4 No Known Problems Sister 5 No Known Problems Sister 6 No Known Problems Sister 7 No Known Problems Sister 8 No Known Problems Sister 9 Asthma Son 1 No Known Problems Son 2 Relation Name Status Comments Brother 1 Brother 2 Brother 3 Alive Brother 4 Alive Daughter Alive Father Maternal Grandfather Maternal Grandmother Mother Paternal Grandfather Sister 1 Alive Sister 2 Alive Sister 3 Alive Sister 4 Alive Sister 5 Alive Sister 6 Alive Sister 7 Alive Sister 8 Alive Sister 9 Alive Son 1 Alive Son 2 Alive Social History Tobacco Use Types Packs/Day Years Used Date Smoking Tobacco: Every Day Cigarettes 0.5 2.2 Started: 10/16/2022 Smokeless Tobacco: Never Tobacco Cessation:Ready to Q uit: Not Asked; Counseling Given: Not Answered Comments:pt state she quiet for 1 year, but restarted two months ago. She is not sure what drove her to restart. But she has plans to quit again when she is ready. Alcohol Use Standard Drinks/Week Comments No 0 (1 standard drink = 0.6 oz pur e alcohol) former drinker Social Connections Answer Date Recorded Connectedness 0 12/25/2022 Financial Resource Strain Answer Date R ecorded Financial Resource Strain 0 2022 Stress Answer Date Recorded Stress 0 12/25/2022 Physical Activity Answer Date Recorded Physical Activity 0 12/19/2018 Food Insecurity Answer Date Recorded Food 0 12/25/2022 Transportation Needs Answer Date Record ed Transportation 0 12/25/2022 Housing Stability Answer Date Recorded Housing 0 12/25/2022 Safety and Environment Answer Date Jerome rded Safety 0 12/25/2022 Utilities Answer Date Recorded Utilities 0 12/25/2022 Employment Answer Date Recorded Stress 0 12/19/2018 Comments No Sex and Gender Information Value Date Recorded Sex Assigned at Female 05/05/2017 11:33 AM PST Legal Sex Female 11:36 AM PDT Gender Identity Female 05/05/2017 11:33 AM PST Sexual Orientation Straight 05/05/2017 11 :33 AM PST Occupation Industry Job Start Date Job End Date disability Not on file Not on file Not on file Last Filed Vital Signs Vital Sign Reading Time Taken Comments Blood Pressure 150/84 10/14/2024 3:45 PM EDT Pulse 63 10/14/2024 3:45 PM EDT Temperature 36.7 C (98 F) 10/14/2024 3:45 PM EDT Respiratory Rate 18 10/14/2024 3:45 PM EDT Oxygen Saturation 96% 10/14/2024 3:45 PM EDT Inhaled Oxygen Concentration - - Weight 50.2 kg (110 lb 9.6 oz) 10/14/2024 3:45 P M EDT Height 142.2 cm (4' 8 ) 10/14/2024 3:45 PM EDT Body Mass Index 24.8 10/14/2024 3:45 PM EDT Plan of Treatment Health Maintenance Due Date Last Done Comments CT Colonography 2003 Colonoscopy 2003 Colorectal Cancer Screening 2003 FIT/gFOBT 2003 Fecal DNA 2003 Flexible Sigmoidoscopy 2003 Tobacco Cessation Counseling (#1) 12/25/2023 Breast Cancer Screening (Mammogram) 07/30/2024 07/31/2023, 05/23/2022, 03/20/2021, Additional history exists Depression Monitoring 10/24/2024 07/24/2024 , 07/10/2023, 12/25/2022, Additional history exists Bek-AWUCG-65 ( season) 2024 08/22/2022, 12/27/2021, 07/04/2021, Additional history exists Imm-Influenza (#1) 2024 12/02/2023, 0 11/27/2021, 11/19/2019, Additional history exists Lipid Screening 01/24/2025 07/24/2024, 04/2 08/2021, 06/24/2020, Additional history exists Diabetes Screening 07/24/2025 07/24/2024, 0 07/24/2024, 07/11/2021, Additional history exists Falls Prevention 09/01/2025 09/01/2024 Medicare Annual Wellness Visit 09/01/2025 09/01/2024 Imm-DTaP/Tdap/Td (3 - Td or Tdap) 07/20/2031 07/19/2021, 01/29/2011 Hepatitis C Screening Completed 04/21/2018 Syphilis Screening Discontinued 09/01/2019 Bone Density Screening Completed 07/31/2023, 2023 Imm-Zoster, Recombinant Discontinued 08/19/19, 10/28/2018, 09/11/2017, Additional history exists Imm-Pneumococcal 50+ Completed 12/02/2023, 12/20/2022, 12/27/2021, Additional history exists Alcohol and Drug Screen Addressed 07/25/19, 07/10/2023, 12/25/2022, Additional history exists Overridden with the intention of not completing the topic Procedures Procedure Name Priority Date/Time Associated Diagnosis Comments REFERRAL SCANNED DOCUMENT 10/12/2024 3:00 AM EDT US RENAL (KIDNEYS) BILAT Routine 10/06/2024 3:00 AM EDT Nephrolithiasis Flank pain BLOOD COUNT COMPLETE AUTO&AUTO DIFRNTL WBC Routine 09/28/2024 10:16 AM EDT Leukocytosis, unspecified type HEMOGLOBIN GLYCOSYLATED A1C Routine 07/24/2024 11:53 AM EDT Prediabetes LIPID PANEL Routine 07/24/2024 11:53 AM EDT Chest pain, unspecified type DXA BONE DENSITY STUDY 1/> SITES AXIAL SKEL Routine 07/31/2023 3:00 AM EDT Postmenopausal REFERRAL FOR MAMMOGRAM Routine 07/31/2023 3:00 AM EDT Breast cancer screening by mammogram FTA-ABS, SERUM Routine 09/01/2019 10:00 AM EDT Possible exposure to STD HEPATITIS C ANTIBODY Routine 04/21/2018 11:56 AM EST Encounter for general adult medical examination without abnormal findings from Last 3 Months or Most Recently Relevant to Health Maintenance Results * REFERRAL SCANNED DOCUMENT (10/12/2024 3:00 AM EDT) 10/12/2024 3:00 AM EDT [facility] Provider Default SCAN REFERRAL Final Resu lt * US RENAL (KIDNEYS) BILAT (10/06/2024 3:00 AM EDT) 10/06/2024 3:0 0 AM EDT [facility] - 10/07/2024 10:39 AM EDT IMPRESSION: No hydronephrosis bilaterally. Non obstructing bilateral renal calculi, largest measuring 0.7 cm, on the right Keo Vazquez MD Signed by Keo Vazquez MD [facility] provided for [facility] Read by: Keo Vazquez MD Reviewed and Electronically Signed by: Keo Vazquez MD Narrative [facility] - 10/07/2024 10:39 AM EDT Original Report PROCEDURE: US RENAL INDICATION: Abdominal pain. Calculus of kidney. TECHNIQUE: Ultrasound of the Renals and Bladder. COMPARISON: CT A/P 07/31/2023. FINDINGS: The right kidney measures 10.5 cm in length. Renal cortical echotexture is normal. There is no hydronephrosis. There is a single stone located within the mid portion measuring 0.7 cm. There are no cysts. The left kidney measures 10.2 cm in length. Renal cortical echotexture is normal. There is no hydronephrosis. There are multiple stones present with the largest located within the inferior portion and measuring 0.5 cm. There are no cysts. The bladder is distended. Procedure Note Default, [facility] Provider - 10/07/2024 Original Report PROCEDURE: US RENAL INDICATION: Abdominal pain. Calculus of kidney. TECHNIQUE: Ultrasound of the Renals and Bladder. COMPARISON: CT A/P 07/31/2023. FINDINGS: The right kidney measures 10.5 cm in length. Renal cortical echotexture is normal. There is no hydronephrosis. There is a single stone located within the mid portion measuring 0.7 cm. There are no cysts. The left kidney measures 10.2 cm in length. Renal cortical echotexture is normal. There is no hydronephrosis. There are multiple stones present with the largest located within the inferior portion and measuring 0.5 cm. There are no cysts. The bladder is distended. IMPRESSION: IMPRESSION: No hydronephrosis bilaterally. Non obstructing bilateral renal calculi, largest measuring 0.7 cm, on the right Keo Vazquez MD Signed by Keo Vazquez MD [facility] provided for [facility] Read by: Keo Vazquez MD Reviewed and Electronically Signed by: Keo Vazquez MD us Suraj Pierre PA-C IMG ULTRASOUND Edited Resul t - Final [facility] Corporate Office [address], [address] [place] [address], [place] [phone] * (ABNORMAL) BLOOD COUNT COMPLETE AUTO&AUTO DIFRNTL WBC Routine (09/28/2024 10:16 AM EDT) WHITE BLOOD CELL COUNT 10.9(H) 3.8 - 10.8 Thousand/ uL [facility] RED BLOOD CELL COUNT 3.60(L) 3.80 - 5.10 Million/u L [facility] HEMOGLOBIN 11.6(L) 11.7 - 15.5 g/dL [facility] HEMATOCRIT 36.1 35.0 - 45.0 % [facility] MCV 100.3(H) 80.0 - 100.0 fL [facility] MCH 32.2 27.0 - 33.0 pg [facility] MCHC 32.1 32.0 - 36.0 g/dL [facility] Comment: For adults, a slight decrease in the calculated MCHC value (in the range of 30 to 32 g/dL) is most likely not clinically significant; however, it should be interpreted with caution in correlation with other red cell parameters and the patient's clinical condition. RDW 13.6 11.0 - 15.0 % [facility] PLATELET COUNT 462(H) 140 - 400 Thousand/ uL [facility] MPV 10.4 7.5 - 12.5 fL [facility] ABSOLUTE NEUTROPHILS 6,987 1,500 - 7,800 cells/uL [facility] ABSOLUTE LYMPHOCYTES 2,758 850 - 3,900 cells/uL [facility] ABSOLUTE MONOCYTES 905 200 - 950 cells/uL [facility] ABSOLUTE EOSINOPHILS 185 15 - 500 cells/uL [facility] ABSOLUTE BASOPHILS 65 0 - 200 cells/uL [facility] NEUTROPHILS PCT 64.1 % QUES T [employer] LYMPHOCYTES 25.3 % [facility] MONOCYTES 8.3 % [facility] EOSINOPHILS 1.7 % [facility] BASOPHILS 0.6 % [facility] Blood Blood / Unknown 09/28/2024 1 0:16 AM EDT 09/28/2024 10:16 AM EDT [facility] - BLOOD DRAW Final Result [facility] [address] [place] [phone], [facility] [address] [place] [phone] * HEMOGLOBIN GLYCOSYLATED A1C (07/24/2024 11:53 AM EDT) HEMOGLOBIN A1C 5.6 <5.7 % [facility] Comment: For the purpose of screening for the presence of diabetes: <5.7% Consistent with the absence of diabetes 5.7-6.4% Consistent with increased risk for diabetes (prediabetes) > or =6.5% Consistent with diabetes This assay result is consistent with a decreased risk of diabetes. Currently, no consensus exists regarding use of hemoglobin A1c for diagnosis of diabetes in children. According to [place] Diabetes Association (ADA) guidelines, hemoglobin A1c <7.0% represents optimal control in non- diabetic patients. Different metrics may apply to specific patient populations. Standards of Medical Care in Diabetes(ADA). Blood Blood / Unknown 07/24/2024 1 1:53 AM EDT 07/24/2024 11:53 AM EDT Narrative [facility] - 07/25/2024 7:01 PM EDT FASTING:NO [facility] - BLOOD DRAW Final Result [facility] [address] [place] [phone], [facility] [address] [phone] * (ABNORMAL) LIPID PANEL (07/24/2024 11:53 AM EDT) CHOLESTEROL, TOTAL 275(H) <200 mg/dL [facility] HDL CHOLESTEROL 41(L) > OR = 50 mg/dL [facility] TRIGLYCERIDES 371(H) <150 mg/dL [facility] Comment: If a non-fasting specimen was collected, consider repeat triglyceride testing on a fasting specimen if clinically indicated. Lewis et al. J. of Clin. Lipidol. 2015;9:129-169. LDL-CHOLESTEROL 171(H) 99 mg/dL (calc) [facility] Comment: Reference range: <100 Desirable range <100 mg/dL for primary prevention; <70 mg/dL for patients with CHD or diabetic patients with > or = 2 CHD risk factors. LDL-C is now calculated using the Roberto-Rich calculation, which is a validated novel method providing better accuracy than the Friedewald equation in the estimation of LDL-C. Roberto BILLY et al. MARILEE. 2013;310(19): 0780-2095 (http://education.Yippy/faq/HSJ015) CHOL/HDLC RATIO 6.7(H) <5.0 (calc) [facility] NON-HDL CHOLESTEROL 234(H) <130 mg/dL (calc) [facility] Comment: Non-HDL level > or = 220 is very high and may indicate genetic familial hypercholesterolemia (FH). Clinical assessment and measurement of blood lipid levels should be considered for all first-degree relatives of patients with an FH diagnosis. For patients with diabetes plus 1 major ASCVD risk factor, treating to a non-HDL-C goal of <100 mg/dL (LDL-C of <70 mg/dL) is considered a therapeutic option. Blood Blood / Unknown 07/24/2024 1 1:53 AM EDT 07/24/2024 11:53 AM EDT Narrative [facility] - 07/25/2024 7:01 PM EDT FASTING:NO [facility] - BLOOD DRAW Final Result [facility] [address] [place] [phone], [facility] [address] [place] [phone] * DXA BONE DENSITY STUDY 1/> SITES AXIAL SKEL (07/31/2023 3:00 AM EDT) 07/31/2023 3:00 AM EDT us Suraj JOHNSON DXA Edited Resul t - Final * REFERRAL FOR MAMMOGRAM SCREENING (07/31/2023 3:00 AM EDT) 07/31/2023 3:00 AM EDT us Suraj JOHNSON RFL MAMMO Edited Resul t - Final * FTA-ABS, SERUM (09/01/2019 10:00 AM EDT) TREPONEMAL AB NEGATIVE NEGATIVE [facility] 09/01/2019 10:0 0 AM EDT 09/01/2019 2:37 PM EDT Narrative [facility] - 09/01/2019 3:29 PM EDT [employer], a member of [address] [address] Senior Materials Planner - Gerri [place] [id number] ORD# [id number] [facility] - BLOOD DRAW Edited Result - Final Performing Organization Address [facility]/ZIP Co de Phone Number [email or web address] [address] [place] [address], [place] [phone] * HEPATITIS C ANTIBODY (04/21/2018 11:56 AM EST) HEPATITIS C VIRUS SCREEN NEGATIVE NEGATIVE [facility] Blood specimen (specimen) Blood / Unknown 04/21/2018 11:56 AM EST 04/21/2018 11:58 AM EST Narrative [email or web address] - 04/21/2018 7:51 PM EST [employer], a member of [address] [address] Senior Materials Planner - Ingrid Ben[place] [id number] ORD# [id number] [facility] - BLOOD DRAW Final Result Performing Organization Address [facility]/ZIP Co de Phone Number [facility] [address] [place] [address], [place] [phone] from Last 3 Months or Most Recently Relevant to Health Maintenance Insurance [place] D[place] [address] [place] [address] ACO [facility] Care Teams Double Needle Operator Relationship Specialty Start Date End Date Suraj Pierre PA-C [address] [place] [address] PCP - General 09/13/21
== END 2024-12-16 12:55 | disposition home or self-care (01) ==
LOC: HO.LAB 12:54
PROVIDERS: Visit Provider Nurse Practitioner Family
DX: N20.0 Calculus of kidney (principal); R31.29 Other microscopic hematuria; Z13.89 Encounter for screening for other disorder
CPT/HCPCS: 81003; 88112; 99202